=== PATIENT | female | born 1965 | race Caucasian/White ===

== ENCOUNTER 2017-02-18 22:57 | Emergency (ER) | payer BC ==
[2017-02-18 22:34] LABS: BASOPHILS 0.4 %; BASOPHILS ABSOLUTE 0.05 10/3/uL (0.0-0.16); EOSINOPHILS 1.5 %; EOSINOPHILS ABSOLUTE 0.21 10/3/uL (0.0-0.53); HEMOGLOBIN 12.8 g/dL (12.0-16.0); IMMATURE GRANULOCYTES 1.6 %; IMMATURE GRANULOCYTES ABSOLUTE 0.22 10/3/uL (0.0-0.11); LYMPHOCYTES 30.7 %; LYMPHOCYTES ABSOLUTE 4.17 10/3/uL (0.67-4.30); MEAN CORPUS HGB CONC 31.8 g/dL (32.0-36.0); MEAN CORPUSCULAR HEMOGLOB 27.6 pg (26.0-34.0); MEAN PLATELET VOLUME 9.6 fL (9.2-13.0); MONOCYTES 4.3 %; MONOCYTES ABSOLUTE 0.59 10/3/uL (0.21-1.20); NEUTROPHILS 61.5 %; NEUTROPHILS ABSOLUTE 8.35 10/3/uL (2.02-8.40); PLATELET COUNT 335 10/3/uL (150-400); RED CELL COUNT 4.64 10/6/uL (4.0-5.6)
[2017-02-18 22:36] LABS: ER CBC TAT 0 Hrs 14 Mins; HEMATOCRIT 40.3 % (36.0-48.0); MANUAL DIFF NO %; MEAN CORPUSCULAR VOLUME 86.9 fL (80-100); WHITE BLOOD CELLS 13.6 10/3/uL (4.5-10.5)
[2017-02-18 22:39] LABS: ASCORBIC ACID (UR NOT ORDER) 40 (NEG); BILIRUBIN, URINE NEGATIVE (NEG); KETONE, URINE NEGATIVE (NEG); NITRITE (URINE) NEG (NEG); WBC (NOT ORDERED) (RFLEX) 3 (0-5)
[2017-02-18 22:40] LABS: LEUKOCYTE ESTERASE(NOT OR TRACE (NEG)
[2017-02-18 22:50] LABS: CALCIUM, SERUM 9.8 MG/DL (8.5-10.4); CHLORIDE, SERUM 93 MMOL/L (96-112); CO2 (CARBON DIOXIDE) 36 MMOL/L (24-34); CREATININE 0.97 MG/DL (0.55-1.02); GFR AFRICAN AMERICAN 78 ML/MIN (>=60); GFR NON AFRICAN AMERICAN 67 ML/MIN (>=60); GLUCOSE, SERUM 83 MG/DL (60-99); SGOT(AST) 21 U/L (5-40); SGPT(ALT) 31 U/L (5-65); SODIUM, SERUM 136 MMOL/L (135-148); TOTAL BILIRUBIN 0.3 MG/DL (0-1.2)
[2017-02-18 22:51] LABS: ALKALINE PHOSPHATASE 106 U/L (45-117); BUN (BLOOD UREA NITROGEN) 12 MG/DL (6-23); GLOBULIN 4.2 G/DL (2.5-4.1); POTASSIUM, SERUM 2.8 MMOL/L (3.5-5.3); TOTAL PROTEIN 8.2 G/DL (6.0-8.5)
[2017-02-18 22:53] LABS: BASOPHILS 1 %; BASOPHILS ABSOLUTE (CALC) 0.14 10/3/uL (0.0-0.16); ER DIFF TAT 0 Hrs 31 Mins; LYMPHOCYTES 31 %; LYMPHOCYTES ABSOLUTE (CALC) 4.22 10/3/uL (0.67-4.30); MONOCYTES 1 %; MONOCYTES ABSOLUTE (CALC) 0.14 10/3/uL (0.21-1.20); NEUTROPHILS ABSOLUTE (CALC) 9.11 10/3/uL (2.02-8.40); SEGMENTED NEUTROPHIL (0) 67 %; TOTAL NUCLEATED CELLS 100
[2017-02-18 22:54] LABS: PLATELET ESTIMATE ADQ (ADEQUATE); RBC MORPHOLOGY NORM (NORMAL)
[~2017-02-18 22:57] MED LIST: ADVIL PO; AUG875 PO; BACDS PO; CELEXA40 MG PO; DEMA20 PO; FLEX PO; FOSAMAX70 MG PO; KLOR-CON M2020 MEQ PO; NEUR300 PO; P20 PO; PRIN20 PO; ULTRAM50 PO
== END 2017-02-19 00:45 | disposition home or self-care (01) ==
LOC: ER 22:57
PROVIDERS: Emergency Medicine
DX: S31.109A Unspecified open wound of abdominal wall, unspecified quadrant without penetration into peritoneal cavity, initial encounter (principal); I10 Essential (primary) hypertension; F32.9 Major depressive disorder, single episode, unspecified; E11.9 Type 2 diabetes mellitus without complications; Z88.0 Allergy status to penicillin; Z88.8 Allergy status to other drugs, medicaments and biological substances; Z79.52 Long term (current) use of systemic steroids; Z79.899 Other long term (current) drug therapy
CPT/HCPCS: 71020; 80053; 81001; 85025; 87040; 96374; 99284; A9270-GY; J1170; J2405